=== PATIENT | female | born 1995 | race African-American/Black ===

== ENCOUNTER 2017-01-29 21:04 | Emergency (ER) | payer SELFPAY ==
[~2017-01-29] VITALS: Ht 152.4 cm; Wt 49.9 kg
[2017-01-29 21:21] VITALS: BP 143/88
[2017-01-29 21:38] LABS: BILIRUBIN,URINE NEGATIVE (NEG); GLUCOSE,URINE NEGATIVE (NEG); NITRITE,URINE NEGATIVE (NEG); PH,URINE 6.5; PROTEIN,URINE NEGATIVE (NEG-TRACE)
[2017-01-29 21:44] LABS: BASO % 0 % (0-3); EOS % 1 % (0-3); HEMATOCRIT 37.7 % (36.0-47.0); HEMOGLOBIN 12.2 g/dL (12.0-15.5); LYMPH # 1.6 x10^3/uL (1.0-4.8); LYMPH % 21 % (24-48); MEAN CORPUSCULAR HEMOGLOBIN 28 pg (25-35); MEAN CORPUSCULAR HGB CONC 32 g/dL (31-37); MEAN CORPUSCULAR VOLUME 88 fL (79-100); MONO % 9 % (0-9); NEUT % 70 % (31-73); PLATELET COUNT 208 x10^3/uL (140-400); WHITE BLOOD COUNT 7.7 x10^3/uL (4.0-11.0)
[2017-01-29 21:47] LABS: BACTERIA,URINE FEW /HPF (0-FEW); SQUAMOUS EPITHELIAL CELL,UR OCC /LPF
[2017-01-29 21:55] LABS: CALCIUM 8.4 mg/dL (8.5-10.1); CREATININE 0.7 mg/dL (0.6-1.0); GFR 125.5; POTASSIUM 3.8 mmol/L (3.5-5.1)
[2017-01-29 22:01] LABS: ALBUMIN 3.8 g/dL (3.4-5.0); ALBUMIN/GLOBULIN RATIO 1.2 (1.0-1.7); TOTAL BILIRUBIN 0.3 mg/dL (0.2-1.0)
[2017-01-29] MEDS ORDERED: traMADol 50 MG TABLET PO ONE (22:30)
[2017-01-29] MEDS ORDERED: ONDANSETRON PF 4 MG/2 ML VIAL. IV ONE (22:30)
[2017-01-29] MEDS ORDERED: KETOROLAC 15 MG/ML VIAL. IV ONE (22:30)
[2017-01-29] MEDS ORDERED: HYDR-971 PO (22:43)
[2017-01-29] MEDS ORDERED: TRAM-48 PO (22:43)
--- NOTE | 2017-01-29 22:43 | PHYS DOC ---
Past Medical History Past Medical History: No Pertinent History Past Surgical History: No Surgical History Alcohol Use: None Drug Use: Marijuana Adult General Chief Complaint Chief Complaint: ABDOMINAL PAIN HPI HPI Patient is a 21 year old female who presents here today complaining of suprapubic abdominal pain is been going on for approximately one day now. Patient reports that she's had this identical pain every time right before her period starts for the last 6 months. Patient reports she did take ibuprofen however today the pain was not significantly improved with the ibuprofen that she decided to come to the ER for further evaluation and assistance. Patient denies any past medical history of hypertension diabetes lung liver or kidney problems. Patient does not smoke or do drugs. Patient is since. Patient reports she is 0 para 0. Patient reports she is sexually active with one partner over the last year. Patient denies any vaginal discharge or vaginal bleeding at this time. Patient has a dysuria frequency or urgency. Patient has any fevers shakes chills cough cold rhinorrhea. Patient reports she's been tolerating by mouth's well without any difficulty eating. Patient denies any emesis. Patient reports that the discomfort that she is experiencing feels like her menstrual cramps however over the last 6 month they've been consistent and they've lasted approximately 2-3 days during the early part of her. Review of systems: Constitutional: Denies fever or chills Eyes: Denies change in visual acuity, redness, or eye pain HENT: Denies nasal congestion or sore throat All other systems were reviewed and found to be within normal limits, except as documented in this note. Physical exam Constitutional: Well developed, well nourished, no acute distress, non-toxic appearance. HENT: Normocephalic, atraumatic, bilateral external ears normal, oropharynx moist, no oral exudates, nose normal. Eyes: PERRLA, EOMI, conjunctiva normal, no discharge. Neck: Normal range of motion, no tenderness, supple, no stridor. Cardiovascular:Heart rate regular rhythm, Lungs & Thorax: Bilateral breath sounds clear to auscultation Abdomen: Nondistended. Skin: Warm, dry, no erythema, no rash. Back: No tenderness, no CVA tenderness. Extremities: No tenderness, no cyanosis, no clubbing, ROM intact, no edema. Neurologic: Alert and oriented X 3, normal motor function, normal sensory function, no focal deficits noted. Psychologic: Affect normal, judgement normal, mood normal. ER physical exam is significant for: Abdomen is soft nondistended no rebound or guarding. Patient has no Ewing sign. Patient has no tenderness over McBurney's point. Patient not present with signs or symptoms O be consistent with an acute surgical abdomen. Patient is mild tenderness to palpation in the suprapubic region. Assessment and plan: 1. Suprapubic abdominal pain most likely secondary to menometromenorrhagia. Patient's labs in ER of all been within normal limits. Patient's status is negative, her UA CBC and CMP of all been within normal limits. While in the ER the patient did receive ibuprofen as well as Ultram with some relief in her discomfort. We have had a conversation with the patient regarding her need to follow-up with a deputy sheriff bailiff as an outpatient in order to assist her with managing her discomfort. Discharged home in stable condition with prescription for Ultram as well as ibuprofen assist her with her pain. Patient is clinically and hemodynamically stable this time there is no need for any further ER inpatient evaluation. Patient does not present with any signs or symptoms of be concerning for UTI, appendicitis, PID, principally related issues. Patient does not present with signs or symptoms of be consistent with an acute surgical abdomen. Current Medications Current Medications Current Medications Medications (Trade) Dose Ordered Sig/Jean-Paul Start Time Stop Time Status Last Admin Dose Admin Ketorolac Tromethamine (Toradol) 15 mg 1X ONCE 01/29/17 22:30 12 22:31 DC 01/29/17 22:18 15 MG Ondansetron HCl (Zofran) 4 mg 1X ONCE 01/29/17 22:30 17 22:31 DC 01/29/17 22:17 4 MG Tramadol HCl (Ultram) 50 mg 1X ONCE 01/29/17 22:30 01/29/17 22:31 DC 01/29/17 22:17 50 MG Allergies Allergies Allergies Coded Allergies Type Severity Reaction Last Updated Verified No Known Drug Allergies 01/29/17 No Current Patient Data Vital Signs Vital Signs Date Time Temp Pulse Resp B/P (MAP) Pulse Ox O2 Delivery O2 Flow Rate FiO2 01/29/17 21:21 98.3 75 18 143/88 (106) 100 Room Air 98.3 Lab Values Laboratory Tests Test 01/29/17 21:13 01/29/17 21:38 Urine Color Yellow Urine Clarity Clear Urine pH 6.5 Urine Specific Morrow 1.020 Urine Protein Negative mg/dL (NEG-TRACE) Urine Glucose (UA) Negative mg/dL (NEG) Urine Ketones (Stick) Negative mg/dL (NEG) Urine Blood Large (NEG) Urine Nitrite Negative (NEG) Urine Bilirubin Negative (NEG) Urine Urobilinogen Dipstick 1.0 mg/dL (0.2 mg/dL) Urine Leukocyte Esterase Trace (NEG) Urine RBC 3-5 /HPF (0-2) Urine WBC 1-4 /HPF (0-4) Urine Squamous Epithelial Cells Occ /LPF Urine Bacteria Few /HPF (0-FEW) Urine Mucus Mod /LPF POC Urine HCG, Qualitative Hcg negative (Negative) White Blood Count 7.7 x10^3/uL (4.0-11.0) Red Blood Count 4.30 x10^6/uL (3.50-5.40) Hemoglobin 12.2 g/dL (12.0-15.5) Hematocrit 37.7 % (36.0-47.0) Mean Corpuscular Volume 88 fL (79-100) Mean Corpuscular Hemoglobin 28 pg (25-35) Mean Corpuscular Hemoglobin Concent 32 g/dL (31-37) Red Cell Distribution Width 13.0 % (11.5-14.5) Platelet Count 208 x10^3/uL (140-400) Neutrophils (%) (Auto) 70 % (31-73) Lymphocytes (%) (Auto) 21 % (24-48) L Monocytes (%) (Auto) 9 % (0-9) Eosinophils (%) (Auto) 1 % (0-3) Basophils (%) (Auto) 0 % (0-3) Neutrophils # (Auto) 5.4 x10^3uL (1.8-7.7) Lymphocytes # (Auto) 1.6 x10^3/uL (1.0-4.8) Monocytes # (Auto) 0.7 x10^3/uL (0.0-1.1) Eosinophils # (Auto) 0.1 x10^3/uL (0.0-0.7) Basophils # (Auto) 0.0 x10^3/uL (0.0-0.2) Sodium Level 142 mmol/L (136-145) Potassium Level 3.8 mmol/L (3.5-5.1) Chloride Level 106 mmol/L (98-107) Carbon Dioxide Level 27 mmol/L (21-32) Anion Gap 9 (6-14) Blood Urea Nitrogen 9 mg/dL (7-20) Creatinine 0.7 mg/dL (0.6-1.0) Estimated GFR (Cockcroft-Gault) 125.5 BUN/Creatinine Ratio 13 (6-20) Glucose Level 95 mg/dL (70-99) Calcium Level 8.4 mg/dL (8.5-10.1) L Total Bilirubin 0.3 mg/dL (0.2-1.0) Aspartate Amino Transferase (AST) 24 U/L (15-37) Alanine Aminotransferase (ALT) 15 U/L (14-59) Alkaline Phosphatase 58 U/L (46-116) Total Protein 7.0 g/dL (6.4-8.2) Albumin 3.8 g/dL (3.4-5.0) Albumin/Globulin Ratio 1.2 (1.0-1.7) Lipase 83 U/L (73-393) Laboratory Tests 01/29/17 21:38 Laboratory Tests 01/29/17 21:38 EKG EKG [] Radiology/Procedures Radiology/Procedures [] Course & Med Decision Making Course & Med Decision Making Pertinent Labs and Imaging studies reviewed. (See chart for details) [] Dragon Disclaimer Dragon Disclaimer This electronic medical record was generated, in whole or in part, using a voice recognition dictation system. Departure Departure Impression: Primary Impression: Menorrhagia Additional Impression: Pelvic pain Disposition: 01 HOME, SELF-CARE Condition: STABLE Referrals: NO PCP (PCP) Patient Instructions: Menorrhagia, Pelvic Pain, Female Scripts Tramadol Hcl (ULTRAM) 50 Mg Tablet 1 TAB PO Q6HRS, #14 TAB Prov: CESIA BALDERAS MD 01/29/17 Hydrocodone/Apap 5-325 (NORCO 5-325 TABLET) 1 Each Tablet 1 TAB PO QID Y for PAIN, #10 TAB Prov: CESIA BALDERAS MD 01/29/17 Problem Qualifiers CESIA BALDERAS MD Jan 29, 2017 22:43
== END 2017-01-29 23:00 | disposition home or self-care (01) ==
LOC: ER 21:04
DX: N92.0 Excessive and frequent menstruation with regular cycle (principal); F12.10 Cannabis abuse, uncomplicated
CPT/HCPCS: 36415; 80053; 81001; 81025; 83690; 85025; 87086; 96374; 96375; 99284; J1885; J2405